=== PATIENT | female | born 1995 | race Caucasian/White ===

== ENCOUNTER 2016-11-21 20:19 | Emergency (ER) | payer MEDICAID ==
[2016-11-21 20:31] VITALS: TEMP 98.4
[2016-11-21] MEDS ORDERED: HYDROCOD/APAP 5/325 PREPACK#6 BTL TAKEHOME ONE (22:50)
--- NOTE | 2016-11-21 22:50 | EDPHY ---
H & P Smoking Status: Current some day smoker Time Seen by Provider: 11/21/16 22:47 HPI/ROS: HPI: 21-year-old female presents to emergency department with chief concern tooth pain. Reports left upper posterior molar with cracked tooth this evening when she was eating. No fever no chills no discharge no jaw pain. No dizziness no headache no nausea or vomiting. ROS:10 point review of systems is negative other than as stated in HPI (Daniela Avila) Social History: Living in her car (Daniela Avila) Physical Exam: Vital signs stable, reviewed by me General: Awake, alert, calm, cooperative. No acute distress. Head: Normalocephalic. Atraumatic. EENT: PERRLA. EOMI. No pallor or injection. Anicteric. No nystagmus. Mouth: Upper posterior molar with visible crack, no induration, no fluctuance in the surrounding gingiva or buccal mucosa. Neck: Supple, nontender. No lymphadenopathy. Full range of motion. Neuro: Alert. Oriented x 3. Speech clear. Nonfocal cranial nerves throughout. Sensation intact all extremities. Strength 5+ all extremities. Follows commands. Skin: Skin warm, dry, intact. Extremities: Moves all extremities Mental status: Interactive, appropriate, well-groomed. (Daniela Avila) Constitutional: Initial Vital Signs Temperature (C) 36.9 C 11/21/16 20:25 Heart Rate 98 11/21/16 20:25 Respiratory Rate 14 11/21/16 20:25 Blood Pressure 131/91 H 11/21/16 20:25 O2 Sat (%) 94 11/21/16 20:25 O2 Delivery Mode Room Air Allergies/Adverse Reactions: Penicillins Allergy (Verified 11/21/16 20:25) Home Medications: Medication Instructions Recorded NK [No Known Home Meds] 11/21/16 Medical Decision Making ED Course/Re-evaluation: Patient was given dental aide phone number and address and referral as well as a six-pack take-home of [place] (Daniela Avila) Differential Diagnosis: Cracked tooth, dental josh (Daniela Avila) Other Provider: PHYSICIAN DOCUMENTATION: The patient was evaluated and managed by the Physician [employer]. My co- signature indicates that I have reviewed this chart and I agree with the findings and plan of care as documented. I am the secondary supervising physician. (Vandaan Walters) - Data Points Medications Given: Discontinued Medications Acetaminophen/Hydrocodone Bitart ([place] 5/325mg Prepack#6) 1 btl CAMILO PERALTA ONE Stop: 11/21/16 22:51 Last Admin: 11/21/16 22:56 Dose: 1 btl Departure - Departure Disposition: Home, Routine, Self-Care Clinical Impression: Cracked tooth, Tooth pain Condition: Good Instructions: Toothache (ED) Additional Instructions: Plan: You may use 600 mg of ibuprofen every 6 hours for fever, inflammation, or pain. Always take ibuprofen with food and stay well hydrated while taking. Do not exceed the maximum allowable dose in a 24 hour period which is 2400 mg. May use 1-2 [place] every 6 hours as needed for severe pain--Never drink or drive while taking this medication. This medication impairs decision making capacity so do not work or sign important documents while taking. This medication its constipating so drink plenty of fluids and consider an [id number] stool softener such as docusate sodium (Colace) while taking this medication. This medication has addictive properties. You should use the least amount for the shortest amount of time. [facility] ED and Urgent Care do not refill narcotic pain medication prescriptions. This is a hospital policy. You will need to follow up as indicated for recheck for further narcotic refills. Call [facility] tomorrow at [phone] and tell them You are emergency room follow-up and need to be seen Friday or Friday--[id number] [facility] [address] Referrals: IN [place],. [Primary Care Provider] - As per Instructions
[2016-11-21 23:02] VITALS: BP 135/88; PULSE 89; RESP 16; O2SAT 99
== END 2016-11-21 23:01 | disposition home or self-care (01) ==
DX: K08.89 Other specified disorders of teeth and supporting structures (principal); K03.81 Cracked tooth; F17.200 Nicotine dependence, unspecified, uncomplicated